=== PATIENT | female | born 1975 | race Caucasian/White ===

== ENCOUNTER 2018-05-10 06:39 | Emergency (ER) | payer BC ==
[~2018-05-10] VITALS: Ht 175.3 cm; Wt 72.2 kg
[2018-05-10 06:46] VITALS: Ht 175.3 cm; Wt 72.2 kg
[2018-05-10 07:37] LABS: CARBON DIOXIDE 24.5 mmol/L (21-32); CHLORIDE SERUM 102 mmol/L (98-107); CREATININE SERUM 0.6 mg/dL (0.6-1.0); GFR1 > 60 mL/min; GLUCOSE SERUM 102 mg/dL (74-106); POTASSIUM SERUM 3.8 mmol/L (3.5-5.1); SODIUM SERUM 135 mmol/L (136-145)
[2018-05-10 07:57] LABS: BASOPHIL % 0.5 % (0-2)
[2018-05-10 07:58] LABS: PLATELET COUNT 436 x10^3mcL (130-400); RED CELL DISTRIBUTION WIDTH 16.6 % (11.5-14.5)
[2018-05-10 08:50] VITALS: BP 134/96
== END 2018-05-10 08:50 | disposition home or self-care (01) ==
LOC: ED 06:39
PROVIDERS: Emergency Medicine
DX: K12.2 Cellulitis and abscess of mouth (principal)
CPT/HCPCS: J0295; J1885; J3490; J7030